=== PATIENT | female | born 1980 | race African-American/Black ===

== ENCOUNTER → 2017-02-08 | Outpatient (CLI) | payer MEDICAID | LOC: OD 15:07 | PROVIDERS: ATTEND Physician Assistant | DX: R05 Cough (principal) | CPT/HCPCS: 71020 ==

== ENCOUNTER 2017-12-09 19:15 | Emergency (ER) | payer MEDICAID, OTHER ==
[2017-12-09] MEDS ORDERED: PROMETHAZINE HCL 25 MG TABLET PO ONE (20:41)
[2017-12-09] MEDS ORDERED: NAPROXEN 250 MG TABLET PO ONE (20:41)
--- NOTE | 2017-12-09 20:43 | ER Document Report ---
ED GI/ - General Chief Complaint: Abdominal Pain Stated Complaint: ABDOMINAL PAIN Time Seen by Provider: 12/09/17 20:29 Notes: Patient is a 37-year-old female that comes emergency department for chief complaint of lower abdominal pain, worse on the right but also occasionally on the left, she states occasionally she feels it in her back on both sides. Symptoms have been going on for 5 days. She denies nausea or vomiting, fever or chills, abnormal bowel movements, dysuria, vaginal bleeding or discharge. Past medical history of ventral hernia repair, tubal ligation, denies history of kidney stones or ovarian cysts. She denies any daily medications. Significant other at bedside. TRAVEL OUTSIDE OF THE [place] IN LAST 30 DAYS: No - Related Data Allergies/Adverse Reactions: No Known Allergies Allergy (Verified 03/18/16 13:39) Past Medical History - General Information source: Patient - Social History Smoking Status: Never Smoker Frequency of alcohol use: None Drug Abuse: None Lives with: Family Family History: Reviewed & Not Pertinent - Past Medical History Cardiac Medical History: Reports: Hx Hypertension Denies: Hx Coronary Artery Disease, Hx Heart Attack Pulmonary Medical History: Reports: Hx Asthma Denies: Hx Bronchitis, Hx COPD, Hx Pneumonia Neurological Medical History: Denies: Hx Cerebrovascular Accident, Hx Seizures GI Medical History: Denies: Hx Hepatitis, Hx Hiatal Hernia, Hx Ulcer Musculoskeltal Medical History: Denies Hx Arthritis Infectious Medical History: Denies: Hx Hepatitis Past Surgical History: Reports: Hx Tubal Ligation. Denies: Hx Hysterectomy, Hx Mastectomy, Hx Open Heart Surgery, Hx Pacemaker - Immunizations Immunizations up to date: No Hx Diphtheria, Pertussis, Tetanus Vaccination: Yes - 2008 Review of Systems - Review of Systems Constitutional: No symptoms reported EENT: No symptoms reported Cardiovascular: No symptoms reported Respiratory: No symptoms reported Gastrointestinal: See HPI Genitourinary: See HPI Female Genitourinary: See HPI Musculoskeletal: No symptoms reported Skin: No symptoms reported Hematologic/Lymphatic: No symptoms reported Neurological/Psychological: No symptoms reported Physical Exam - Vital signs Vitals: Temp Pulse BP Pulse Ox 98.7 F 79 141/95 H 98 12/09/17 19:50 12/09/17 19:50 12/09/17 19:50 12/09/17 19:50 Interpretation: Normal - General General appearance: Appears well In distress: None - Smiling, talkative, well-appearing - HEENT Head: Normocephalic, Atraumatic Eyes: Normal Pupils: PERRL - Respiratory Respiratory status: No respiratory distress Chest status: Nontender Breath sounds: Normal Chest palpation: Normal - Cardiovascular Rhythm: Regular Heart sounds: Normal auscultation Murmur: No - Abdominal Inspection: Normal Distension: No distension Bowel sounds: Normal Tenderness: Tender - Patient complains with palpation of the general lower abdomen/pelvic area although this is nonspecific, no guarding, no rigidity, no rebound tenderness Organomegaly: No organomegaly - Genitourinary External exam: Normal Speculum exam: Cervix closed, Vaginal discharge - Moderate amount of yellowish vaginal discharge Vaginal bleeding: None Bimanuel exam: No: Cervical motion tender Notes: Professor Of Management present, Raven BEY assisting with examination - Back Back: Normal, Nontender - Extremities General upper extremity: Normal inspection, Nontender, Normal color, Normal ROM , Normal temperature General lower extremity: Normal inspection, Nontender, Normal color, Normal ROM , Normal temperature, Normal weight bearing. No: Toni's sign - Neurological Neuro grossly intact: Yes Cognition: Normal Orientation: AAOx4 Teofilo Coma Scale Eye Opening: Spontaneous [place] Coma Scale Verbal: Oriented [place] Coma Scale Motor: Obeys Commands [place] Coma Scale Total: 15 Speech: Normal Motor strength normal: LUE, RUE, LLE, RLE Sensory: Normal - Psychological Associated symptoms: Normal affect, Normal mood - Skin Skin Temperature: Warm Skin Moisture: Dry Skin Color: Normal Course - Re-evaluation Re-evalutation: Mild generalized lower abdominal tenderness on examination, unremarkable vital signs, lab workup and urinalysis unremarkable, hCG is negative. Pelvic examination consistent with bacterial vaginosis and trichomonas both on examination and wet mount results. No cervical motion tenderness, no fever, gonorrhea and Chlamydia are negative. Patient was treated for pelvic infection regardless, bacterial vaginosis, trichomonas. Discussed with patient, she states her partner will be treated at the health department. Discussed expectations, follow-up, return precautions. Patient states understanding and agreement. - Vital Signs Vital signs: Temp Pulse Resp BP Pulse Ox 98.3 F 76 16 150/95 H 100 12/09/17 23:53 12/09/17 23:53 12/09/17 23:53 12/09/17 23:53 12/09/17 23:53 - Laboratory Result Diagrams: 12/09/17 21:02 12/09/17 21:02 Laboratory results interpreted by me: 12/09/17 12/09/17 21:02 21:02 RBC 5.45 H MCH 26.6 L RDW 14.9 H Eosinophils % 7.3 H Ur Leukocyte Esterase SMALL H Discharge - Discharge Clinical Impression: Pelvic pain, Vaginal discharge Condition: Stable Disposition: HOME, SELF-CARE Additional Instructions: Your workup shows trichomonas and bacterial vaginosis. You have begun treatment for pelvic infection tonight, take Flagyl as directed to complete treatment. Your partner also needs to be treated for trichomonas. Follow-up with primary care. Return for any concerning or worsening symptoms including vomiting, fever, or any other concerning symptoms. Prescriptions: Metronidazole [Flagyl 500 mg Tablet] 500 mg PO BID #14 tablet Forms: Elevated Blood Pressure
[2017-12-09 21:19] LABS: ABSOLUTE BASOPHILS # (AUTO) 0.1 10^3/uL (0.0-0.2); ABSOLUTE EOSINOPHILS # (AUTO) 0.6 10^3/uL (0.0-0.6); ABSOLUTE LYMPHOCYTES (AUTO) 2.1 10^3/uL (0.5-4.7); ABSOLUTE MONOCYTES (AUTO) 0.4 10^3/uL (0.1-1.4); ABSOLUTE NEUT (AUTO) 4.7 10^3/uL (1.7-8.2); BASOPHILS % (AUTO) 0.8 % (0-2); EOSINOPHILS % (AUTO) 7.3 % (0-6); HEMATOCRIT 43.4 % (36.0-47.0); HEMOGLOBIN 14.5 g/dL (12.0-15.5); LYMPHOCYTES % (AUTO) 26.9 % (13-45); MEAN CORPUSCULAR HEMOGLOBIN 26.6 pg (27.0-33.4); MEAN CORPUSCULAR HGB CONC 33.4 g/dL (32.0-36.0); MEAN CORPUSCULAR VOLUME 80 fl (80-97); MONOCYTES % (AUTO) 5.6 % (3-13); PLATELET COUNT 267 10^3/uL (150-450); RED BLOOD COUNT 5.45 10^6/uL (3.72-5.28); RED CELL DISTRIBUTION WIDTH 14.9 % (11.5-14.0); SEGMENTED NEUTROPHILS % (AUTO) 59.4 % (42-78); TOTAL CELLS COUNTED % (AUTO) 100 %; WHITE BLOOD COUNT 7.8 10^3/uL (4.0-10.5)
[2017-12-09 21:22] LABS: APPEARANCE,URINE CLOUDY; BILIRUBIN,URINE NEGATIVE (NEGATIVE); COLOR,URINE YELLOW; GLUCOSE, URINE NEGATIVE (NEGATIVE); KETONES,URINE NEGATIVE (NEGATIVE); LEUKOCYTE ESTERASE,URINE SMALL (NEGATIVE); NITRITE,URINE NEGATIVE (NEGATIVE); PROTEIN,URINE NEGATIVE (NEGATIVE); URINE SPECIFIC GRAVITY 1.011; UROBILINOGEN,URINE NEGATIVE mg/dL (<2.0)
[2017-12-09 21:37] LABS: ALANINE AMINOTRANSFERASE 25 U/L (9-52); ALBUMIN 3.8 g/dL (3.5-5.0); ALKALINE PHOSPHATASE 64 U/L (38-126); ANION GAP 9 (5-19); ASPARTATE AMINO TRANSFERASE 24 U/L (14-36); BILIRUBIN,DIRECT 0.2 mg/dL (0.0-0.4); BILIRUBIN,TOTAL 0.6 mg/dL (0.2-1.3); BLOOD UREA NITROGEN 16 mg/dL (7-20); CALCIUM 9.4 mg/dL (8.4-10.2); CARBON DIOXIDE 26 mmol/L (22-30); CHLORIDE 107 mmol/L (98-107); GLUCOSE 83 mg/dL (75-110); POTASSIUM 4.8 mmol/L (3.6-5.0); SODIUM 142.2 mmol/L (137-145); TOTAL PROTEIN 6.9 g/dL (6.3-8.2)
[2017-12-09 22:25] LABS: BACTERIA (WET MOUNT) 3+ BACTERIA SEEN; EPITHELIALS (WET MOUNT) 4+ EPITHELIALS SEEN; T.VAGINALIS (WET MOUNT) TRICHOMONAS SEEN; WBCS (WET MOUNT) FEW WBCS SEEN; YEAST (WET MOUNT) NO YEAST SEEN
[2017-12-09] MEDS ORDERED: LIDOCAINE 1% INJ-PF (10 MG/ML) 30 ML SDV INJ ONE (22:35)
[2017-12-09] MEDS ORDERED: AZITHROMYCIN 250 MG TABLET PO ONE (22:35)
[2017-12-09] MEDS ORDERED: CEFTRIAXONE INJ 250 MG VIAL IM ONE (22:35)
[2017-12-09] MEDS ORDERED: METRONIDAZOLE 500 MG TABLET PO ONE (22:35)
[2017-12-09 23:50] LABS: CHLAM PCR NOT DETECTED (NOT DETECT); GON PCR NOT DETECTED (NOT DETECT)
[2017-12-09 23:54] VITALS: BP 150/95
== END 2017-12-09 23:53 | disposition home or self-care (01) ==
LOC: ER 19:15
DX: R10.2 Pelvic and perineal pain (principal); N89.8 Other specified noninflammatory disorders of vagina; R10.30 Lower abdominal pain, unspecified; I10 Essential (primary) hypertension; Z98.51 Tubal ligation status
CPT/HCPCS: 99284; 96372; 36415; 87210; 85025; 81025; 80053; 81001; 87491; 87591; J3490; J0696

== ENCOUNTER 2018-08-18 19:29 | Emergency (ER) | payer MEDICAID, OTHER ==
[2018-08-18] MEDS ORDERED: ACETAMINOPHEN 325 MG TABLET PO ONE (22:17)
[2018-08-18 23:01] LABS: APPEARANCE,URINE CLEAR; BILIRUBIN,URINE NEGATIVE (NEGATIVE); COLOR,URINE YELLOW; GLUCOSE, URINE NEGATIVE (NEGATIVE); KETONES,URINE NEGATIVE (NEGATIVE); LEUKOCYTE ESTERASE,URINE NEGATIVE (NEGATIVE); NITRITE,URINE NEGATIVE (NEGATIVE); PROTEIN,URINE NEGATIVE (NEGATIVE); URINE SPECIFIC GRAVITY 1.012; UROBILINOGEN,URINE NEGATIVE mg/dL (<2.0)
--- NOTE | 2018-08-18 23:24 | RADIOLOGY REPORT (SQ) ---
EXAM DESCRIPTION: XR CHEST 2 VIEWS COMPLETED DATE/TME: 08/18/2018 22:37 CLINICAL HISTORY: 37 years, Female, cough COMPARISON: 02/06/2016 chest x-ray NUMBER OF VIEWS: 2 TECHNIQUE: Frontal and lateral views of the chest LIMITATIONS: None. FINDINGS: Heart size is normal. Lungs are clear. No pneumothorax IMPRESSION: Negative chest copyright 2010 [facility] [employer] All Rights Reserved
[2018-08-18 23:37] VITALS: BP 148/99
--- NOTE | 2018-08-18 23:41 | ER Document Report ---
ED General - General Chief Complaint: Cold Symptoms Stated Complaint: FEVER, BODY ACHES, HEADACHE, COUGH Time Seen by Provider: 08/18/18 21:57 Mode of Arrival: Ambulatory TRAVEL OUTSIDE OF THE [place] IN LAST 30 DAYS: No - HPI Patient complains to provider of: cough Onset: Other - 37-year-old female presents for evaluation of cough as well as shortness of breath over the last few days with associated fever. She notes that occasionally she brings up some sputum with it. She has used Tylenol to try and help with her symptoms which helped a little bit. She never had pain like this in the past, nothing else is seem to make it better or worse. She does endorse body aches. Denies any rashes, lightheadedness, diaphoresis, abdominal pain diarrhea constipation or dysuria. She is otherwise healthy and has no medical problems. - Related Data Allergies/Adverse Reactions: No Known Allergies Allergy (Verified 08/18/18 22:27) Past Medical History - General Information source: Patient - Social History Smoking Status: Current Every Day Smoker Chew tobacco use (# tins/day): No Frequency of alcohol use: None Drug Abuse: None Family History: Reviewed & Not Pertinent Patient has suicidal ideation: No Patient has homicidal ideation: No - Past Medical History Cardiac Medical History: Reports: Hx Hypertension Denies: Hx Coronary Artery Disease, Hx Heart Attack Pulmonary Medical History: Reports: Hx Asthma Denies: Hx Bronchitis, Hx COPD, Hx Pneumonia Neurological Medical History: Denies: Hx Cerebrovascular Accident, Hx Seizures Renal/ Medical History: Denies: Hx Peritoneal Dialysis GI Medical History: Denies: Hx Hepatitis, Hx Hiatal Hernia, Hx Ulcer Musculoskeletal Medical History: Denies Hx Arthritis Infectious Medical History: Denies: Hx Hepatitis Past Surgical History: Reports: Hx Tubal Ligation. Denies: Hx Hysterectomy, Hx Mastectomy, Hx Open Heart Surgery, Hx Pacemaker - Immunizations Immunizations up to date: No Hx Diphtheria, Pertussis, Tetanus Vaccination: Yes - 2009 Review of Systems - Review of Systems -: Yes All other systems reviewed and negative Physical Exam - Vital signs Vitals: Temp Pulse Resp BP Pulse Ox 99.5 F 93 16 152/95 H 100 08/18/18 20:06 08/18/18 20:06 08/18/18 20:06 08/18/18 20:06 08/18/18 20:06 - General General appearance: Appears well, Alert - HEENT Head: Normocephalic, Atraumatic Eyes: Normal Pupils: PERRL - Respiratory Respiratory status: No respiratory distress Chest status: Nontender Breath sounds: Normal Chest palpation: Normal - Cardiovascular Rhythm: Regular Heart sounds: Normal auscultation Murmur: No - Abdominal Inspection: Normal Distension: No distension Bowel sounds: Normal Tenderness: Nontender Organomegaly: No organomegaly - Back Back: Normal, Nontender - Extremities General upper extremity: Normal inspection, Nontender, Normal color, Normal ROM , Normal temperature General lower extremity: Normal inspection, Nontender, Normal color, Normal ROM , Normal temperature, Normal weight bearing. No: Toni's sign - Neurological Neuro grossly intact: Yes Cognition: Normal Orientation: AAOx4 Teofilo Coma Scale Eye Opening: Spontaneous [place] Coma Scale Verbal: Oriented [place] Coma Scale Motor: Obeys Commands [place] Coma Scale Total: 15 Speech: Normal Motor strength normal: LUE, RUE, LLE, RLE Sensory: Normal - Psychological Associated symptoms: Normal affect, Normal mood Course - Re-evaluation Re-evalutation: 08/18/18 23:46 37-year-old female presents for cough as well as cold and body aches over the last 2 days. Clinically she likely has influenza. She does have a scant wheeze in the lungs which is new for her will obtain chest x-ray. Patient without any obvious pneumonia identified on chest x-ray. She is given Tylenol emergency department had a low-grade fever was otherwise well-appearing able to tolerate p.o. throughout her time in the emergency department. Offered her Tamiflu we did discuss risks and benefits of Tamiflu she declined. She will prefer to use [id number] medications. She is given a prescription for Tessalon Perles to use for her cough. - Vital Signs Vital signs: Temp Pulse Resp BP Pulse Ox 98.1 F 82 20 148/99 H 95 08/18/18 23:36 08/18/18 23:36 08/18/18 23:36 08/18/18 23:36 08/18/18 23:36 Discharge - Discharge Clinical Impression: Cough, Cold, Congestion of nasal sinus, Influenza Condition: Good Disposition: HOME, SELF-CARE Instructions: Acetaminophen, Use of [id number] Ibuprofen ([facility]), Influenza ([facility]) [id number] Additional Instructions: Your seen today in the emergency department for your cough and cold it is likely that you have influenza. You have been given medication to help with your cough. Use Motrin and Tylenol to help with your fever and your body aches. Return if you have worsening symptoms or unable to eat or drink otherwise schedule appointment with your primary physician this week. Prescriptions: Benzonatate [Tessalon Perles 100 mg Capsule] 100 mg PO Q8HP PRN #40 capsule PRN Reason: Forms: Return to Work Referrals: BENI GIBBONS MD [Primary Care Provider] - Follow up as needed
== END 2018-08-18 23:44 | disposition home or self-care (01) ==
LOC: ER 19:29
DX: J11.1 Influenza due to unidentified influenza virus with other respiratory manifestations (principal); R09.81 Nasal congestion; R05 Cough; R50.9 Fever, unspecified; M79.10 Myalgia, unspecified site; R51 Headache; F17.200 Nicotine dependence, unspecified, uncomplicated; I10 Essential (primary) hypertension; J45.909 Unspecified asthma, uncomplicated
CPT/HCPCS: 71046; 81001; 99284

== ENCOUNTER 2019-08-06 15:06 | Emergency (ER) | payer MEDICAID ==
[2019-08-06 15:29] VITALS: BP 161/119
--- NOTE | 2019-08-06 15:47 | ER Document Report ---
HPI - HPI Patient complains to provider of: left lower leg pain Time Seen by Provider: 08/06/19 15:39 Onset: Other - 2 weeks Onset/Duration: Persistent Quality of pain: Achy Severity: Severe Pain Level: 5 Context: 38-year-old female presents emergency department with complaints of left lower anterior diop pain. She reports that she is been hurting for the past 2 weeks. Denies trauma. Denies recent trips. Does not take control. Patient works at [employer], stands on her feet a lot. Denies recent new shoes. Patient does smoker. Denies history of DVT. Reports she has been taking Motrin without relief of symptoms. No other complaints such as fever vomiting diarrhea. 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 Family History: Reviewed & Not Pertinent Patient has suicidal ideation: No Patient has homicidal ideation: No - Past Medical History Cardiac Medical History: Reports: Hx Hypertension Denies: Hx Coronary Artery Disease, Hx Heart Attack Pulmonary Medical History: Reports: Hx Asthma Denies: Hx Bronchitis, Hx COPD, Hx Pneumonia Neurological Medical History: Denies: Hx Cerebrovascular Accident, Hx Seizures Renal/ Medical History: Denies: Hx Peritoneal Dialysis GI Medical History: Denies: Hx Hepatitis, Hx Hiatal Hernia, Hx Ulcer Musculoskeletal Medical History: Denies Hx Arthritis Infectious Medical History: Denies: Hx Hepatitis Past Surgical History: Reports: Hx Tubal Ligation. Denies: Hx Hysterectomy, Hx Mastectomy, Hx Open Heart Surgery, Hx Pacemaker - Immunizations Immunizations up to date: No Hx Diphtheria, Pertussis, Tetanus Vaccination: Yes - 2008 Vertical Provider Document - CONSTITUTIONAL Agree With Documented VS: Yes Exam Limitations: No Limitations General Appearance: WD/WN, No Apparent Distress - INFECTION CONTROL TRAVEL OUTSIDE OF THE [place] IN LAST 30 DAYS: No - HEENT HEENT: Atraumatic, Normocephalic - NECK Neck: Supple - RESPIRATORY Respiratory: No Respiratory Distress - CARDIOVASCULAR Cardiovascular: Regular Rate - MUSCULOSKELETAL/EXTREMETIES Musculoskeletal/Extremeties: MAEW, FROM, Tender - Left lower anterior diop tender to palpate no erythema no swelling no warmth negative Homans good pedal pulse cap refill less than 2 seconds. - NEURO Level of Consciousness: Awake, Alert, Appropriate Motor/Sensory: No Motor Deficit - DERM Integumentary: Warm, Dry Course - Re-evaluation Re-evalutation: 08/06/19 15:46 This 38-year-old female presents emergency department with left anterior diop pain. Reports sometimes the pain will radiate up to her knees when she walks. Denies trauma. Denies history of DVTs. No recent trips. No obvious swelling no erythema no warmth to her calf, right calf 43 cm left calf 431/2. Tib-fib x- ray ordered. Patient was offered pain medication, Motrin, she declined 08/06/19 16:26 X-ray negative. Patient was instructed to make sure she is wearing good supportive shoes. Take Tylenol Motrin for the pain. lidoderm patch was applied for patient comfort. Patient was also instructed to follow-up with her primary care provider within a week for recheck or return to the emergency department for swelling of her leg continued pain concerns. She verbalized understand all instructions. Tibia/Fibula X-Ray 08/06/19 15:43 IMPRESSION: NEGATIVE STUDY OF THE LEFT TIBIA AND FIBULA. NO EXPLANATION FOR PAIN. - Vital Signs Vital signs: Temp Pulse Resp BP Pulse Ox 98.4 F 87 18 161/119 H 100 08/06/19 15:27 08/06/19 15:27 08/06/19 15:27 08/06/19 15:27 08/06/19 15:27 - Diagnostic Test Radiology reviewed: Image reviewed, Reports reviewed Discharge - Discharge Clinical Impression: Pain in left diop Condition: Stable Disposition: HOME, SELF-CARE Additional Instructions: *You have been evaluated for left lower leg pain *wear good supporting shoes *Rest/Ice/Elevate your leg *Follow up with primary care provider for recheck within 1 week and for referral to orthopedics as indicated *Take ibuprofen or Tylenol as indicated for pain. *Return to ED for worsening condition, changes, needs Forms: Elevated Blood Pressure Referrals: BENI GIBBONS MD [Primary Care Provider] - Follow up in 1 week
--- NOTE | 2019-08-06 16:23 | RADIOLOGY REPORT (SQ) ---
EXAM DESCRIPTION: TIBIA FIBULA LEFT COMPLETED DATE/TIME: 08/06/2019 3:57 pm REASON FOR STUDY: left lower leg pain COMPARISON: None. NUMBER OF VIEWS: Two views. TECHNIQUE: Two radiographic images acquired of the left tibia and fibula to include the knee and ank le in at least one projection. LIMITATIONS: None. FINDINGS: MINERALIZATION: Normal. BONES: No acute fracture or dislocation. No worrisome bone lesions. No significant osteophytes. SOFT TISSUES: No obvious swelling or foreign body. OTHER: No other significant finding. IMPRESSION: NEGATIVE STUDY OF THE LEFT TIBIA AND FIBULA. NO EXPLANATION FOR PAIN. TECHNICAL DOCUMENTATION: JOB ID: [id number] [employer]- All Rights Reserved Reading location - IP/workstation name: [email or web address]
[2019-08-06] MEDS ORDERED: LIDOCAINE 5% (700 MG) TRANSDERMAL ADH..PATCH TP ONE (16:34)
== END 2019-08-06 16:42 | disposition home or self-care (01) ==
LOC: ER 15:06
DX: M79.662 Pain in left lower leg (principal); F17.210 Nicotine dependence, cigarettes, uncomplicated; J45.909 Unspecified asthma, uncomplicated; I10 Essential (primary) hypertension
CPT/HCPCS: 73590; J3490; 99283

== ENCOUNTER 2019-11-15 19:34 | Emergency (ER) | payer MEDICAID ==
[2019-11-15] MEDS ORDERED: ONDANSETRON 4 MG TAB.RAPDIS PO ONE (21:22)
--- NOTE | 2019-11-15 21:23 | ER Document Report ---
ED Medical Screen (RME) - General Chief Complaint: Headache Stated Complaint: HIGH BLOOD PRESSURE, SORE THROAT, HEADACHE Time Seen by Provider: 11/15/19 21:12 Primary Care Provider: BENI GIBBONS MD [Primary Care Provider] - Follow up as needed Mode of Arrival: Ambulatory Information source: Patient Notes: 39-year-old female presented to ED for complaint of cough congestion headache on Wednesday she went to work on Wednesday and had to go home because of the headache and cough. She went to the doctor on Wednesday because she was having chest pain when she coughed diarrhea and continued to have the headache. 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 We did the blood pressure and the triage area and got 140/92 I had the RN check it and he got 35/8O. Due to her multiple symptoms I will get a chest x-ray. TRAVEL OUTSIDE OF THE [place] IN LAST 30 DAYS: No - HPI Onset: Other Onset/Duration: Gradual Quality of pain: Achy - Wednesday, Throbbing Severity: Moderate Pain Level: 3 Associated Symptoms: Body/muscle aches, Headache, Nausea, Sinus pain/drainage Exacerbated by: Denies Relieved by: Denies Similar symptoms previously: Yes Recently seen / treated by doctor: Yes - Related Data Smoking: Cigarettes - 5 cigarettes a day Frequency of alcohol use: None Drug Abuse: None Allergies/Adverse Reactions: No Known Allergies Allergy (Verified 08/18/18 22:27) Past Medical History - General Information source: Patient - Social History Cigarette use (# per day): Yes - 5 cigarettes a day Frequency of alcohol use: None Drug Abuse: None Occupation: WINDING MACHINE OPERATOR student Lives with: Family Family history: Reviewed & Not Pertinent - Past Medical History Cardiac Medical History: Reports: Hx Hypercholesterolemia, Hx Hypertension - With Pulmonary Medical History: Reports: Hx Asthma Neurological Medical History: Reports: None Endocrine Medical History: Reports: None Renal/ Medical History: Reports: None Malignancy Medical History: Reports: None GI Medical History: Reports: None Musculoskeltal Medical History: Reports None Skin Medical History: Reports None Psychiatric Medical History: Reports: None Traumatic Medical History: Reports: None Infectious Medical History: Reports: None Past Surgical History: Reports: Hx Tubal Ligation, Hx Umbilical Hernia - Immunizations Immunizations up to date: No Hx Diphtheria, Pertussis, Tetanus Vaccination: No - 2008 Review of Systems - Review of Systems Constitutional: Recent illness EENT: Nose discharge, Sinus discharge Cardiovascular: No symptoms reported Respiratory: No symptoms reported Gastrointestinal: No symptoms reported Genitourinary: No symptoms reported Female Genitourinary: No symptoms reported Musculoskeletal: No symptoms reported Skin: No symptoms reported Hematologic/Lymphatic: No symptoms reported Neurological/Psychological: No symptoms reported -: Yes All other systems reviewed and negative Physical Exam - Vital signs Vitals: Temp Pulse Resp BP Pulse Ox 98.5 F 79 16 156/116 H 100 11/15/19 21:06 11/15/19 21:06 11/15/19 21:06 11/15/19 21:06 11/15/19 21:06 Interpretation: Normal, Hypertensive - Blood pressure 142/92 - General General appearance: Appears well, Alert - HEENT Head: Normocephalic, Atraumatic Eyes: Normal Pupils: PERRL Ears: Normal External canal: Normal Tympanic membrane: Normal Sinus: Frontal, Tenderness Nasal: Purulent discharge, Swelling Mouth/Lips: Normal Mucous membranes: Normal Pharynx: Post nasal drainage. No: Erythema, Exudate Neck: Normal - Respiratory Respiratory status: No respiratory distress Chest status: Nontender Breath sounds: Normal, Nonproductive cough Chest palpation: Normal - Cardiovascular Rhythm: Regular Heart sounds: Normal auscultation Murmur: No - Abdominal Inspection: Normal Distension: No distension Bowel sounds: Normal Tenderness: Nontender Organomegaly: No organomegaly - Back Back: Normal, Nontender - Extremities General upper extremity: Normal inspection, Nontender, Normal color, Normal ROM, Normal temperature General lower extremity: Normal inspection, Nontender, Normal color, Normal ROM, Normal temperature, Normal weight bearing. No: Toni's sign - Neurological Neuro grossly intact: Yes Cognition: Normal Orientation: AAOx4 [place] Coma Scale Eye Opening: Spontaneous [place] Coma Scale Verbal: Oriented [place] Coma Scale Motor: Obeys Commands [place] Coma Scale Total: 15 Speech: Normal Motor strength normal: LUE, RUE, LLE, RLE Sensory: Normal - Psychological Associated symptoms: Normal affect, Normal mood - Skin Skin Temperature: Warm Skin Moisture: Dry Skin Color: Normal Course - Vital Signs Vital signs: Temp Pulse Resp BP Pulse Ox 98 F 80 18 130/80 H 97 11/16/19 00:18 11/16/19 00:18 11/16/19 00:18 11/16/19 00:18 11/16/19 00:18 Doctor's Discharge - Discharge Clinical Impression: URI (upper respiratory infection) Qualifiers: URI type: unspecified viral URI Qualified Code(s): J06.9 - Acute upper respiratory infection, unspecified Condition: Stable Disposition: HOME, SELF-CARE Additional Instructions: UPPER RESPIRATORY ILLNESS: You have a viral infection of the respiratory passages -- a "cold." This common infection causes nasal congestion, drainage, and often sore throat and cough. It is highly contagious. The disease usually lasts about 10 to 14 days. There is no "cure" for the viral infection -- it must run its course. If there is a complication, such as bacterial infection in the nose, sinuses, middle ear, or bronchial tubes, antibiotics may be required. The antibiotics won't affect the virus. Drink plenty of fluids. A humidifier may help. An expectorant medication or decongestant may make you more comfortable. Use acetaminophen or ibuprofen for fever or aches. See the doctor if fever persists over two days, if there is any significant worsening of your symptoms, or if you simply fail to improve as expected. Headache The physician does not feel that the headache you are experiencing has a serious underlying cause. Most headaches are due to emotional stress, with resultant muscle tension (tension headache). Occasionally, headaches are secondary to changes in the blood vessels of the scalp (vascular headache and migraine headache). Sometimes, a headache is the first symptom of another developing illness, such as a viral infection. You have no evidence of stroke, bleeding, meningitis, or other serious cause of your headache. The treatment of headaches varies with the severity and cause of the pain. Not all headaches need pain shots. In fact, there is evidence that using narcotics for headaches may make them worse in the long run. The physician will determine the therapy that's in your best interest. If you develop a fever, if the headache is different from any you've previously experienced, or if the headache progressively worsens, then call your physician at once or go to the emergency room. You have been recommended treatment use of Flonase which is [id number] 1 spray each nostril twice a day. You could also use salt soda solution gargles. These will help to remove the drainage from the back your throat. Chloraseptic spray was [id number] that will also help with your sore throat. Salt and soda solution gargle 1 quart of water 1 tablespoon of salt 1 teaspoon of baking soda Mixed 3 ingredients together and boil for 1 minute Placed in a covered quart jar Use 1/2 ounce of cold solution to gargle 3 times a day USE OF ACETAMINOPHEN (Tylenol): Acetaminophen may be taken for pain relief or fever control. It's much safer than aspirin, offering a wider range of "safe" dosages. It is safe during . Some brand names are Tylenol, Panadol, Datril, Anacin 3, Tempra, and Liquiprin. Acetaminophen can be repeated every four hours. The following are maximum recommended dosages: >89 pounds or adults 650 mg to 900 mg Acetaminophen can be repeated every four hours. Maximum dose not to exceed 4000 mg a day. Acetaminophen Acetaminophen may be taken for pain relief or fever control. It's much safer than aspirin, offering a wider range of "safe" dosages. It is safe during . Some brand names are Tylenol, Panadol, Datril, Anacin 3, Tempra, and Liquiprin. Acetaminophen can be repeated every four hours. The following are maximum recommended dosages: WEIGHT Dose Drops Elixir Chewable(80mg) (LBS.) drprs=droppers tsp=teaspoon 6 40 mg .4 ml (1/2) 6-11 80 mg .8 ml (full) 1/2 tsp 1 tab 12-16 120 mg 1 1/2 drprs 3/4 tsp 1 1/2 tabs 17-23 160 mg 2 drprs 1 tsp 2 tabs 24-30 240 mg 3 drprs 1 1/2 tsp 3 tabs 30-35 320 mg 2 tsp 4 tabs 36-41 360 mg 2 1/4 tsp 4 1/2 tabs 42-47 400 mg 2 1/2 tsp 5 tabs 48-53 480 mg 3 tsp 6 tabs 54-59 520 mg 3 1/4 tsp 6 1/2 tabs 60-64 560 mg 3 1/2 tsp 7 tabs 65-70 600 mg 3 3/4 tsp 7 1/2 tabs 71-76 640 mg 4 tsp 8 tabs 77-82 720 mg 4 1/2 tsp 9 tabs 83-88 800 mg 5 tsp 10 tabs >89 pounds or adults 650 mg to 900 mg Acetaminophen can be repeated every four hours. Maximum daily dose not to exceed 4000 mg. These maximum recommended dosages are slightly higher than the dosages written on the product container, but these dosages are very safe and well below the toxic dosage for acetaminophen. Antinausea Medication You have been given a medication to suppress nausea and vomiting. This type of medication can be given as a shot, pill, or suppository. It will usually last for many hours. Pills and shots usually last six to eight hours, suppositories last about 12 hours. For the typical illness, only one or two doses of the medication may be necessary. Mild lightheadedness may occur. This type of medicine can cause drowsiness. Do not drive or operate dangerous machinery while under its influence. Do not mix with alcohol. See your doctor at once if you have muscle spasms or tightness, or uncontr ollable motions (particularly of the neck, mouth, or jaw). Persistent vomiting or severe lightheadedness should also be evaluated by the physician. SMOKING: If you smoke, you should stop smoking. The tar and chemicals in cigarette smoke are harmful. Smoking has been shown to cause: emphysema chronic bronchitis lung cancer mouth and throat cancer stomach and pancreas cancer premature aging defects In addition, smoking increases ear and lung infections in children of smokers. FOLLOW-UP CARE: If you have been referred to a physician for follow-up care, call the physicians office for an appointment as you were instructed or within the next two days. If you experience worsening or a significant change in your symptoms, notify the physician immediately or return to the Emergency Department at any time for re-evaluation. Forms: Smoking Cessation Education, Return to School, Return to Work Referrals: BENI GIBBONS MD [Primary Care Provider] - Follow up as needed
--- NOTE | 2019-11-15 21:58 | RADIOLOGY REPORT (SQ) ---
XR CHEST 2 VIEWS EXAM DATE: 11/15/2019 9:23 PM TRIALS MANAGER HISTORY: Cough and congestion. COMPARISON: 08/19/2018 FINDINGS: The cardiac silhouette is within normal limits. There is no pulmonary vascular congestion. No focal consolidation is identified. No pleural effusions or pneumothorax. IMPRESSION: No evidence of acute cardiopulmonary disease.
[2019-11-16 00:19] VITALS: BP 130/80
== END 2019-11-16 00:23 | disposition home or self-care (01) ==
LOC: ER 19:34
DX: J06.9 Acute upper respiratory infection, unspecified (principal); R51 Headache; J02.9 Acute pharyngitis, unspecified; R09.81 Nasal congestion; M79.10 Myalgia, unspecified site; I10 Essential (primary) hypertension; F17.210 Nicotine dependence, cigarettes, uncomplicated
CPT/HCPCS: 99284; 71046; S0119